=== PATIENT | female | born 1985 | race Caucasian/White ===

== ENCOUNTER → 2016-07-27 | Outpatient (REF) | payer BC ==
[~2016-07-27] MED LIST: FLOM5CAP PO; IBUP80TA PO; LEVO750T33; PERC5TAB6 PO; ZOFR4TAB3 PO
== END ==
LOC: M LAB REF 16:44
PROVIDERS: ATTEND Physician Assistant
DX: N39.0 Urinary tract infection, site not specified (principal)

== ENCOUNTER 2016-07-28 11:10 | Emergency (ER) | payer BC ==
[~2016-07-28] VITALS: Ht 157.5 cm; Wt 44.5 kg
[2016-07-28] MEDS ORDERED: LEVO750T33 (11:19)
[2016-07-28] MEDS ORDERED: ACETAMINOPHEN 325 MG TAB PO ONE (11:45)
[2016-07-28] MEDS ORDERED: NS 1,000 ML IV ONE (11:45)
[2016-07-28] MEDS ORDERED: cefTRIAXone SOD 1 GM in D5W MINI-BAG PLUS 50 ML IV ONE (11:45)
[2016-07-28] MEDS ORDERED: ONDANSETRON 4MG/2ML VIAL (J2405) IV ONE (11:45)
[2016-07-28] MEDS ORDERED: KETOROLAC 30 MG/ML VIAL (J1885) IV ONE (11:45)
[2016-07-28 12:15] LABS: MEAN CORPUSCULAR HEMOGLOBIN 31.1 pg (27.0-33.0); MEAN CORPUSCULAR HGB CONC 33.5 g/dl (32.0-36.5); RED CELL DISTRIBUTION WIDTH 13.7 % (11.5-14.5); WHITE BLOOD COUNT 16.4 K/mm3 (4.0-10.0)
[2016-07-28 13:06] LABS: ALBUMIN 3.3 GM/DL (3.2-5.2); ALBUMIN/GLOBULIN RATIO 0.75 (1.00-1.93); ALKALINE PHOSPHATASE 46 U/L (45-117); ALT/SGPT 12 U/L (12-78); ANION GAP 14 MEQ/L (8-16); AST/SGOT 14 U/L (15-37); BILIRUBIN,TOTAL 0.5 MG/DL (0.2-1.0); BLOOD UREA NITROGEN 13 MG/DL (7-18); CALCIUM LEVEL 8.5 MG/DL (8.5-10.1); CARBON DIOXIDE LEVEL 21 MEQ/L (21-32); CHLORIDE LEVEL 102 MEQ/L (98-107); GLOMERULAR FILTRATION RATE > 60.0 (>60); GLUCOSE, FASTING 82 MG/DL (70-105); POTASSIUM SERUM 3.6 MEQ/L (3.5-5.1); SODIUM LEVEL 137 MEQ/L (136-145); TOTAL PROTEIN 7.7 GM/DL (6.4-8.2)
--- NOTE | 2016-07-28 13:38 | REP ---
CT abdomen and pelvis without IV or oral contrast: Renal stone protocol. History: Right-sided abdomen and flank pain. Comparison CT study August 05, 2005. CT findings: Preliminary digital dirt bike racer radiograph shows tubal ligation clamps are noted bilaterally in the pelvis. Bowel gas pattern is unremarkable. The lung bases are clear on axial CT images. The liver and the spleen are normal in size, homogeneous in texture. No focal hepatic lesion is seen. The gallbladder and the pancreas are unremarkable. No adrenal lesion is seen. No intrarenal calculus is observed on either side. There is however perinephric stranding on the right most notable in the perinephric fat at the lower pole. No intrarenal calculus is observed. There are bilateral phleboliths in the pelvis in addition to the tubal ligation clamps. One of these may be in the distal ureter just above the ureterovesical junction but this is difficult to be confident of. There is no definite hydronephrosis on either side. There is an accessory splenule. Small and large intestinal bowel loops are unremarkable. The appendix is not definitely identified but there is no CT evidence to suggest appendicitis. The cecal tip is deep in the pelvis. Uterus is somewhat retroverted. Impression: Perinephric stranding at the lower pole of the right kidney. No definite hydronephrosis. Question 4 mm distal ureteral calculus on the right. Versus possible right-sided pyelonephritis. Otherwise negative CT study abdomen and pelvis without contrast. Signed by Moises Owen MD 07/28/2016 04:25 P
[2016-07-28 13:44] VITALS: BP 110/50
[2016-07-28] MEDS ORDERED: TAMSULOSIN 0.4 MG CAP PO ONE (14:00)
[2016-07-28] MEDS ORDERED: ZOFR4TAB3 PO (14:06)
[2016-07-28] MEDS ORDERED: PERC5TAB6 PO (14:06)
[2016-07-28] MEDS ORDERED: FLOM5CAP PO (14:06)
[2016-07-28] MEDS ORDERED: IBUP80TA PO (14:12)
== END 2016-07-28 14:27 | disposition home or self-care (01) ==
LOC: M ED 11:54
DX: N20.1 Calculus of ureter (principal); Z79.899 Other long term (current) drug therapy
CPT/HCPCS: 36415; 74176; 80053; 81001; 81025; 83605; 85027; 87086; 96365; 96375; 99284; J0696; J1885; J2405

== ENCOUNTER → 2017-06-22 | Outpatient (CLI) | payer BC | LOC: M WUC 09:52 | DX: R07.81 Pleurodynia (principal) | CPT/HCPCS: 71101 ==

== ENCOUNTER 2020-01-01 23:10 | Emergency (ER) | payer BC ==
[~2020-01-01 23:10] MED LIST changes: +FLOM0.4C39 PO; -FLOM5CAP PO; +LEVO750T13; -LEVO750T33; +PERC5TAB12 PO; -PERC5TAB6 PO; +ULTR50TA8 PO; +VITA50005 PO; +ZOFR4TAB14 PO; -ZOFR4TAB3 PO
[2020-01-02] MEDS ORDERED: LORazepam 1 MG TAB ONE (04:15)
--- NOTE | 2020-01-30 11:51 | ECGEPIP ---
[facility] - ED Test Date: 2020-01-02 Pat Name: JOYCE WALDRON Department: Room: - Gender: Female Production Internship: jarvis : 1985 Requested By: MARLO Celestin Order Number: [id number] Reading MD: Mer Jarquin Measurements Intervals [place] Rate: 94 P: 71 SC: 139 QRS: 101 QRSD: 84 T: 31 QT: 338 QTc: 423 Interpretive Statements SINUS RHYTHM MARKED RIGHT AXIS DEVIATION ABNORMAL ECG SEE SCANNED DOWNTIME REPORT
[2020-02-17 01:57] LABS: BASO # 0.1 10^3/uL (0.0-0.2); BASO % 0.7 % (0.0-1.0); EOS # 0.2 10^3/uL (0.0-0.5); EOS % 1.7 % (0.0-3.0); HEMATOCRIT 39.7 % (36.0-47.0); HEMOGLOBIN 13.1 g/dl (12.0-15.5); LYMPH # 3.2 10^3/uL (1.5-5.0); LYMPH % 24.2 % (24.0-44.0); MEAN CORPUSCULAR HEMOGLOBIN 31.3 pg (27.0-33.0); MONO # 0.9 10^3/uL (0.0-0.8); MONO % 6.5 % (0.0-5.0); NEUTROPHILS # 8.9 10^3/uL (1.5-8.5); NEUTROPHILS % 66.6 % (36.0-66.0); PLATELET COUNT, AUTOMATED 227 10^3/uL (150-450); RED BLOOD COUNT 4.18 10^6/uL (4.00-5.40); WHITE BLOOD COUNT 13.3 10^3/uL (4.0-10.0)
[2020-03-27 12:22] LABS: VENOUS BASE EXCESS -7.6 (-2.0-2.0); VENOUS HCO3 18.3 MEQ/L (23.0-27.0); VENOUS PARTIAL PRESSURE CO2 38.9 mmHg (38.0-50.0); VENOUS PARTIAL PRESSURE O2 43.3 mmHg (30.0-50.0); VENOUS PH 7.291 UNITS (7.330-7.430); VENOUS TOTAL CO2 19.5 MEQ/L (24.0-28.0)
[2020-03-27 12:23] LABS: VENOUS O2 SATURATION 73.9 % (60.0-80.0); VENOUS STANDARD HCO3 17.9 MEQ/L
[2020-03-27 12:31] LABS: ALBUMIN 3.9 GM/DL (3.2-5.2); ALT/SGPT 22 U/L (12-78); BILIRUBIN,DIRECT < 0.1 MG/DL (0.0-0.2); BILIRUBIN,TOTAL 0.2 MG/DL (0.2-1.0); BLOOD UREA NITROGEN 16 MG/DL (7-18); CALCIUM LEVEL 8.9 MG/DL (8.5-10.1); CARBON DIOXIDE LEVEL 24 MEQ/L (21-32); CHLORIDE LEVEL 112 MEQ/L (98-107); CK-MB VALUE MASS < 1.0 NG/ML (<3.6); CPK CREATINE PHOSPHOKINASE 182 U/L (26-192); CREATININE FOR GFR 0.85 MG/DL (0.55-1.30); ETHYL ALCOHOL (ETHANOL) 0.147 % (0.000-0.010); GLOMERULAR FILTRATION RATE > 60.0 (>60); GLUCOSE, FASTING 84 MG/DL (70-100); MB/CK RELATIVE INDEX 0.55 (< OR =4); NT-PRO BNP 24 PG/ML (<125); POTASSIUM SERUM 3.5 MEQ/L (3.5-5.1); SODIUM LEVEL 144 MEQ/L (136-145); TOTAL PROTEIN 7.8 GM/DL (6.4-8.2); TROPONIN I < 0.02 NG/ML (< 0.10)
== END 2020-01-02 04:30 | disposition home or self-care (01) ==
LOC: M ED 23:10
DX: R06.02 Shortness of breath (principal); R94.31 Abnormal electrocardiogram [ECG] [EKG]
CPT/HCPCS: 80048; 80076; 82550; 82553; 82803; 83880; 84484; 85025; 85379; 93005; 99285; G0480

== ENCOUNTER → 2021-01-18 | Outpatient (REF) | payer BC | LOC: M LAB REF 19:11 | PROVIDERS: ATTEND Physician Assistant | DX: R06.02 Shortness of breath (principal) ==

== ENCOUNTER 2021-03-31 01:46 | Emergency (ER) | payer BC ==
[~2021-03-31] VITALS: Ht 157.5 cm; Wt 47.8 kg
--- OUTSIDE RECORDS SUMMARY | 2021-03-31 01:55 | CCD ---
Continuity of Care Document (CCD) Created on: 01/19/2021 RickyArline External Reference #: [id number] : 1985 Sex: Female Author Author Arline HICKS Organization Unknown Address [address] [place] [address] [address] [place] [address] Phone [phone] Care Team Providers Care Sandwich Wrapper Name Role Phone Ita Ramírez D.O. AUTM Problems Active Problems Provider Date Mild recurrent major depression CAR Bryant Onset: 0 08/09/2018 Social History Type Date Description Comments Sex Unknown Tobacco Use Start: Unknown Light tobacco smoker (10 or fewe r cigarettes/day) Smoking Status Reviewed: 01/18/21 Light tobacco smoker (10 or fewer cigarettes/day) ETOH Use Occasionally consumes alcohol Tobacco Use Start: Unknown Light tobacco smoker (10 or fewe r cigarettes/day) smokes in a social setting only. Recreational Drug Use Denies Drug Use Exercise Type/Frequency Gym 2 times a week Sun Exposure Uses sunscreen Seat Belt/Car Seat Always uses seat belt Allergies, Adverse Reactions, Alerts Description No Known Drug Allergies Medications Active Medications SIG Qnty Indications Ordering Provide r Date Colace 100mg Capsules 1 by mouth every day 90caps K59.00 Ita Ramírez D.O. 08/10 Ambien 10mg Tablets take one tablet by mouth before bed 30tabs G47.8 Ita Ramírez D.O. 07/21 Knee Support/Neoprene/Open Patella/Small Misc one unit for stabilization of left patella 1units M76.5 2 Ita Baumann D.O. 07/27/2018 Flonase Sensimist 27 .5mcg/[place] Suspension two spray in each nostril every day 5.900ml H92.01 Ita Ramírez D.O. 07/27/2018 History Medications Linzess 145mcg Capsules 1 capsule by mouth daily on an empty stomach in the in the morning 90caps K59.00 Ita Baumann D.O. 08/10/2020 - 09/10/2020 Immunizations Description No Information Available Vital Signs Date Vital Result Comment 01/18/2021 4:01pm BP Systolic 120 mmHg BP Diastolic 66 mmHg Height 62.1 inches 5'2.10" Heart Rate 84 /min Respiratory Rate 14 /min Body Temperature 99.5 F O2 % BldC Oximetry 99 % [place] Body Weight 110 lb 09/10/2020 2:44pm BP Systolic 122 mmHg BP Diastolic 84 mmHg Height 62.1 inches 5'2.10" Weight 112.00 lb BMI (Body Mass Index) 20.4 kg/m2 Heart Rate 98 /min Body Temperature 99.7 F O2 % BldC Oximetry 99 % [place] Body Weight 110 lb Results Test Acquired Date Facility Test Result H/L Range Note Respiratory Panel 01/18/2021 [facility] Outpatient Testi (Registration) [address] [place] [address] [phone] Respiratory Panel This respiratory <SEE NOTE> 1 1 This respiratory PCR panel d etects Influenza A H1, H3 and 2009 H1 viruses, Influenza B virus, Resp iratory Syncytial Virus, Human metapneumovirus, Parainfluenza virus 1, 2, 3 and 4, Adenovirus, Rhinovirus/Enterovirus, Coronavirus HKU1, NL63, OC43, 229E and SARS-CoV-2 (COVID 19), Bordetella pertussis, Bordetella parapertussis, Mycoplasma pneumoniae and Chlamydia pneumoniae. NEGATIVE by MULTIPLEXED NUCLEIC ACID PCR SARS-CoV-2 (COVID 19) NEGATIVE - SARS-CoV-2 (COVID19) Procedures Date Code Description Status 01/18/2021 24807 Office/Outpatient Established Lo w MDM 20-29 Min Completed 09/10/2020 30496 Office/Outpatient Established Lo w MDM 20-29 Min Completed 08/10/2020 88975 Office/Outpatient Established Mo d MDM 30-39 Min Completed Medical Devices Description No Information Available Encounters Type Date Location Provider Dx Diagnosis Office Visit 01/18/2021 4:00p [facility] CAR Rondon R06.02 Shortness of breath Office Visit 09/10/2020 2:30p [facility] CAR Bryant K59.00 Constipation, unspecified G47.8 Other sleep disorders J30.9 Allergic rhinitis, unspecifi ed Office Visit 08/10/2020 4:10p [facility] CAR Bryant K59.00 Constipation, unspecified G47.8 Other sleep disorders Assessments Date Code Description Provider 01/18/2021 R06.02 Shortness of breath CAR Dunn 09/10/2020 K59.00 Constipation, unspecified CAR Coleman 09/10/2020 G47.8 Other sleep disorders CAR Noguera 09/10/2020 J30.9 Allergic rhinitis, unspecified M CAR Montaño 08/10/2020 K59.00 Constipation, unspecified CAR Coleman 08/10/2020 G47.8 Other sleep disorders CAR Noguera Plan of Treatment Future Appointment(s):* 09/13/2021 9:00 am - CAR Bryant at [facility] 01/18/2021 - CAR Rondon* R06.02 Shortness of breath* Comments:* Unsure of the cause currently. For the time being, we will test you for COVID. C onsider taking your loratadine twice daily, and using nasal saline as needed. Try a cooler environment. Call for any concerns. Functional Status Description No Information Available Mental Status Description No Information Available Referrals Description No Information Available
--- OUTSIDE RECORDS SUMMARY | 2021-03-31 01:55 | CCD | Continuity of Care Document ---
Author Author Arline HICKS Organization Unknown Address [address] [place] [address] [address] [place] [address] Phone [phone] Care Team Providers Care Vp Treasurer Name Role Phone Ita Ramírez D.O. AUTM [phone] Problems Active Problems Provider Date Mild recurrent [...] Ita Baumann D.O. 07/27/2018 Flonase Sensimist 27 .5mcg/[place] Suspension two spray in each nostril every [...] F O2 % BldC Oximetry 99 % [place] Body Weight 110 lb 09/10/2020 2:44pm BP Systolic 122 mmHg BP Diastolic 84 mmHg Height 62.1 inches 5'2.10" Weight 112.00 lb BMI (Body Mass Index) 20.4 kg/m2 Heart Rate 98 /min Body Temperature 99.7 F O2 % BldC Oximetry 99 % [place] Body Weight 110 lb Results Test Acquired Date Facility Test Result H/L Range Note Respiratory Panel 01/18/2021 [facility] Outpatient Testi (Registration) [address] [place] [address] [phone] Respiratory Panel This respiratory <SEE NOTE> 1 [...] (COVID19) Procedures Date Code Description Status 01/18/2021 86417 Office/Outpatient Established Lo w MDM 20-29 Min Completed 09/10/2020 62531 Office/Outpatient Established Lo w MDM 20-29 Min Completed 08/10/2020 35918 Office/Outpatient Established Mo d MDM 30-39 Min Completed Medical Devices Description No Information Available Encounters Type Date Location Provider Dx Diagnosis Office Visit 01/18/2021 4:00p [facility] CAR Rondon R06.02 Shortness of breath Office Visit 09/10/2020 2:30p [facility] CAR Bryant K59.00 Constipation, unspecified G47.8 Other sleep disorders J30.9 Allergic rhinitis, unspecifi ed Office Visit 08/10/2020 4:10p [facility] CAR Bryant K59.00 Constipation, unspecified G47.8 Other [...] 09/13/2021 9:00 am - CAR Bryant at [facility] 01/18/2021 - CAR Rondon* R06.02 Shortness of [...]
--- OUTSIDE RECORDS SUMMARY | 2021-03-31 01:56 | CCD ---
Author Author [facility] Organization [facility] Address Unknown Phone Unavailable Care Team Providers Care General Repair Mechanic Name Role Phone Nisreen, Rickey PA Unavailable Unavailable Nisreen, Rickey PA Unavailable Unavailable Nisreen, Rickey PA Unavailable Unavailable Nisreen, Rickey PA Unavailable Unavailable Nisreen, Rickey PA Unavailable Unavailable Nisreen, Rickey PA Unavailable Unavailable Nisreen, Rickey PA Unavailable Unavailable Nisreen, Rickey PA Unavailable Unavailable Nisreen, Rickey PA Unavailable Unavailable Nisreen, Rickey PA Unavailable Unavailable Nisreen, Rickey PA Unavailable Unavailable Nisreen, Rickey PA Unavailable Unavailable Nisreen, Rickey PA Unavailable Unavailable Nisreen, Rickey PA Unavailable Unavailable Nisreen, Rickey PA Unavailable Unavailable Nisrene, Rickey PA Unavailable Unavailable Nisreen, Rickey PA Unavailable Unavailable Nisreen, Rickey PA Unavailable Unavailable Nisreen, Rickey PA Unavailable Unavailable Nisreen, Rickey PA Unavailable Unavailable Nisreen, Rickey PA Unavailable Unavailable Nisreen, Rickey PA Unavailable Unavailable Nisreen, Rickey PA Unavailable Unavailable Nisreen, Rickey PA Unavailable Unavailable Nisreen, Rikcey PA Unavailable Unavailable Nisreen, Rickey PA Unavailable Unavailable Nisreen, Rickey PA Unavailable Unavailable Nisreen, Rickey PA Unavailable Unavailable Nirseen, Rickey PA Unavailable Unavailable Nisreen, Rickey PA Unavailable Unavailable Nisreen, Rickey PA Unavailable Unavailable Nisreen, Rickey PA Unavailable Unavailable Nisreen, Rickey PA Unavailable Unavailable Nisreen, Rickey PA Unavailable Unavailable Nisreen, Rickey PA Unavailable Unavailable Nisreen, Rickey PA Unavailable Unavailable Nisreen, Rickey PA Unavailable Unavailable Nisreen, Rickey PA Unavailable Unavailable Nisreen, Rickey PA Unavailable Unavailable Nisreen, Rickey PA Unavailable Unavailable Nisreen, Rickey PA Unavailable Unavailable Nisreen, Rickey PA Unavailable Unavailable Nisreen, Rickey PA Unavailable Unavailable Nisreen, Rickey PA Unavailable Unavailable Nisreen, Rickey PA Unavailable Unavailable Nisreen, Rickey PA Unavailable Unavailable Nisreen, Rickey PA Unavailable Unavailable Nisreen, Rickey PA Unavailable Unavailable Nisreen, Rickey PA Unavailable Unavailable Nisreen, Rickey PA Unavailable Unavailable Nisreen, Rickey PA Unavailable Unavailable Nisreen, Rickey PA Unavailable Unavailable Nisreen, Rickey PA Unavailable Unavailable Nisreen, Rickey PA Unavailable Unavailable O'milind, A Luis PA Unavailable Unavailable O'milind, A Luis PA Unavailable Unavailable O'milind, A Luis PA Unavailable Unavailable O'milind, A Luis PA Unavailable Unavailable O'milind, A Luis PA Unavailable Unavailable O'milind, A Luis PA Unavailable Unavailable O'milind, A Luis PA Unavailable Unavailable O'milind, A Luis PA Unavailable Unavailable O'milind, A Luis PA Unavailable Unavailable O'milind, A Luis PA Unavailable Unavailable O'milind, A Luis PA Unavailable Unavailable O'milind, A Luis PA Unavailable Unavailable O'milind, A Luis PA Unavailable Unavailable O'milind, A Luis PA Unavailable Unavailable O'milind, A Luis PA Unavailable Unavailable O'milind, A Luis PA Unavailable Unavailable O'milind, A Luis PA Unavailable Unavailable O'milind, A Luis PA Unavailable Unavailable O'milind, A Luis PA Unavailable Unavailable O'milind, A Luis PA Unavailable Unavailable O'milind, A Luis PA Unavailable Unavailable O'milind, A Luis PA Unavailable Unavailable O'milind, A Luis PA Unavailable Unavailable O'milind, A Luis PA Unavailable Unavailable O'milind, A Luis PA Unavailable Unavailable O'milind, A Luis PA Unavailable Unavailable O'milind, A Luis PA Unavailable Unavailable O'milind, A Lius PA Unavailable Unavailable O'milind, A Luis PA Unavailable Unavailable O'milind, A Luis PA Unavailable Unavailable O'milind, A Luis PA Unavailable Unavailable O'milind, A Luis PA Unavailable Unavailable O'milind, A Luis PA Unavailable Unavailable Re-disclosure Warning The records that you are about to access may contain information from federally-assisted alcohol or drug abuse programs. If such information is present, then the following federally mandated warning applies: This information has been disclosed to you from records protected by federal confidentiality rules (42 CFR part 2). The federal rules prohibit you from making any further disclosure of this information unless further disclosure is expressly permitted by the written consent of the person to whom it pertains or as otherwise permitted by 42 CFR part 2. A general authorization for the release of medical or other information is NOT sufficient for this purpose. The Federal rules restrict any use of the information to criminally investigate or prosecute any alcohol or drug abuse patient.The records that you are about to access may contain highly sensitive health information, the redisclosure of which is protected by Article 27-F of the [place] Public Health law. If you continue you may have access to information: Regarding HIV / AIDS; Provided by facilities licensed or operated by the [place] [employer] [place] Office of Mental Health; or Provided by the [facility] [place] Office for People With Developmental Disabilities. If such information is present, then the following [facility] [employer] mandated warning applies: This information has been disclosed to you from confidential records which are protected by state law. State law prohibits you from making any further disclosure of this information without the specific written consent of the person to whom it pertains, or as otherwise permitted by law. Any unauthorized further disclosure in violation of state law may result in a fine or penitentiary sentence or both. A general authorization for the release of medical or other information is NOT sufficient authorization for further disc losure. Family History Family Member Name Family Member Gender Family Member Status Date o f Status Description Data Source(s) Unknown Male Problem [facility] ([facility]) Unknown Male Problem [facility] ([facility] Unknown Unknown Problem [facility] ([facility]) mgm,pgm,maternal aunt,paternal uncle Unknown Unknown Problem [facility] ([facility] Unknown Unknown Problem [facility] ([facility]) son age 5 - Neel, Twins age 3 son - Cary cardona, girl - Violette. Unknown Unknown Problem [facility] ([facility] Encounters Encounter Providers Location Date Indications Data Source(s ) Outpatient Attender: Rickey YOON [facility] 01/18/2021 04:00:00 PM EDT [facility] ([facility]) Outpatient Attender: Luis YOON [facility] 09/10/2020 02:30:00 PM EDT [facility] ([facility]) Outpatient Attender: Luis YOON [facility] 08/10/2020 04:10:00 PM EDT [facility] ([facility]) Outpatient Attender: Rickey YOON [facility] 05/19/2020 03:10:00 PM EST [facility] ([facility]) Immunizations Vaccine Date Status Description Data Source(s) COVID-19 VACCINE Bessy 03/05/2021 12:00:00 AM EDT completed [facility] Vaccine Series Complete: YESThis Data wa s Submitted to [facility] Via [employer]. Medications Medication Brand Name Start Date Product Form Dose Route Admi nistrative Instructions Pharmacy Instructions Status Indications Reaction Description Data Source(s) Docusate Sodium 100 MG Oral Capsule [Colace] Colace 12:00:00 AM EDT ORAL active [facility] ( [facility]) linaclotide 0.145 MG Oral Capsule [Linzess] Linzess 07/21 12:00:00 AM EDT ORAL completed [facility] ([facility]) Zolpidem tartrate 10 MG Oral Tablet [Ambien] Ambien 12:00:00 AM EDT ORAL active [facility] ( [facility]) Insurance Providers Payer name Policy type / Coverage type Policy ID Covered republican ID Covered republican's relationship to nelson Policy Nelson Plan Information [place] [id number] [facility] [id number] [facility] [id number] [place] Trad/MX Commercial [id number] Family Dependent [id number] [place] Trad/MX Commercial [id number] Family Dependent [place] Trad/MX Commercial [id number] Self [id number] BS [place] Commercial [id number] Family Dependent G [id number] BCBS/Blue Card Commercial [id number] Self [id number] [place] 306/806 [id number] HU2 [id number] [place]BS [place] PPO 302/307 [id number] HU2 [id number] BCBS/Blue Card Commercial [id number] Self [id number] BCBS/Blue Card Commercial [id number] Family Dependent [id number] BCBS/Blue Card Commercial .[id number] Family Dependent BC/BS Of [place] Commercial [id number] Family Depende nt [employer] [id number] SP [id number] SELF PAY UNAVAILABLE SP UNAVAILA BLE BCBS/Blue Card Commercial [id number] Self [id number] [employer] BCBS B [id number] P [id number] [id number] [employer] U/W Commercial [id number] Family Dependent [place] [id number] BCBS OF [place] 306/806 [id number] HU2 [id number] [facility] U/W Commercial [id number] Family Dependent AN [id number] Problems, Conditions, and Diagnoses No Information Surgeries/Procedures Procedure Description Date Indications Data Source(s) OFFICE OUTPATIENT VISIT 15 MINUTES 01/18/2021 12:00:00 AM EDT [facility] ([facility]) OFFICE OUTPATIENT VISIT 15 MINUTES 09/10/2020 12:00:00 AM EDT [facility] ([facility]) OFFICE OUTPATIENT VISIT 25 MINUTES 08/10/2020 12:00:00 AM EDT [facility] ([facility]) Results ID Date Data Source [id number] 01/18/2021 04:16:00 PM EDT [facility] Name Value Range Interpretation Code Description Data Kae rce(s) Supporting Document(s) SARS-CoV-2 (COVID 19) NEGATIVE - SARS-CoV-2 (COVID19) [facility] This lab was ordered by [facility] a nd reported by [facility]. ID Date Data Source [id number] 01/18/2021 04:16:00 PM EDT [facility] ([facility]) Name Value Range Interpretation Code Description Data Kae rce(s) Supporting Document(s) Respiratory Panel Laboratory test result [facility] ([facility]) This respiratory PCR panel detects Influ [place] A H1, H3 and 2009 H1 viruses, Influenza B virus, Resp iratory Syncytial Virus, Human metapneumovirus, Parainfluenza virus 1, 2, 3 and 4, Adenovirus, Rhinovirus/Enterovirus, Coronavirus HKU1, NL63, OC43, 229E and SARS-CoV-2 (COVID 19), Bordetella pertussis, Bordetella parapertussis, Mycoplasma pneumoniae and Chlamydia pneumoniae. NEGATIVE by MULTIPLEXED NUCLEIC ACID PCR SARS-CoV-2 (COVID 19) NEGATIVE - SARS-CoV-2 (COVID19) Procedure Social History No Information Vital Signs ID Date Data Source UNK Name Value Range Interpretation Code Description Data Source(s) Body temperature 99.5 [degF] 99.5 [degF] [facility] ([facility]) Systolic blood pressure 120 mm[Hg] 120 mm[Hg] [facility] ([facility]) Oxygen saturation in Arterial blood by Pulse oximetry 99 % 99 % [facility] ([facility]) Diastolic blood pressure 66 mm[Hg] 66 mm[Hg] [facility] ([facility]) Body height 62.1 [in_i] 62.1 [in_i] [facility] ([facility]) 5'2.10" Heart rate 84 /min 84 /min [facility] ([facility]) [place] body weight 110 [lb_av] 110 [lb_av] [facility] ([facility]) Respiratory rate 14 /min 14 /min [facility] ( [facility]) [place] body weight 110 [lb_av] 110 [lb_av] [facility] ([facility]) Body weight 112.00 [lb_av] 112.00 [lb_av] [facility] ([facility]) Oxygen saturation in Arterial blood by Pulse oximetry 99 % 99 % [facility] ([facility]) Body temperature 99.7 [degF] 99.7 [degF] [facility] ([facility]) Body mass index (BMI) [Ratio] 20.4 kg/m2 20.4 k g/m2 [facility] ([facility]) Heart rate 98 /min 98 /min [facility] ([facility]) Systolic blood pressure 122 mm[Hg] 122 mm[Hg] [facility] ([facility]) Diastolic blood pressure 84 mm[Hg] 84 mm[Hg] [facility] ([facility]) Body height 62.1 [in_i] 62.1 [in_i] [facility] ([facility]) 5'2.10" Systolic blood pressure 122 mm[Hg] 122 mm[Hg] [facility] ([facility]) Diastolic blood pressure 74 mm[Hg] 74 mm[Hg] [facility] ([facility]) Body height 62.1 [in_i] 62.1 [in_i] [facility] ([facility]) 5'2.10" Body temperature 99.5 [degF] 99.5 [degF] [facility] ([facility]) Heart rate 96 /min 96 /min [facility] ([facility]) Respiratory rate 18 /min 18 /min [facility] ( [facility]) Oxygen saturation in Arterial blood by Pulse oximetry 97 % 97 % [facility] ([facility]) [place] body weight 110 [lb_av] 110 [lb_av] [facility] ([facility]) Systolic blood pressure 114 mm[Hg] 114 mm[Hg] [facility] ([facility]) Diastolic blood pressure 72 mm[Hg] 72 mm[Hg] [facility] ([facility]) Body height 62.1 [in_i] 62.1 [in_i] [facility] ([facility] 5'2.10" Body weight 110.00 [lb_av] 110.00 [lb_av] [facility] ([facility]) Body mass index (BMI) [Ratio] 20.1 kg/m2 20.1 k g/m2 [facility] ([facility]) Heart rate 100 /min 100 /min [facility] ([facility]) Body temperature 99.8 [degF] 99.8 [degF] [facility] ([facility]) Oxygen saturation in Arterial blood by Pulse oximetry 93 % 93 % [facility] ([facility]) [place] body weight 110 [lb_av] 110 [lb_av] [facility] ([facility]) Respiratory rate 18 /min 18 /min [facility] ( [facility])
--- OUTSIDE RECORDS SUMMARY | 2021-03-31 01:56 | CCD | Continuity of Care Document ---
Author Author Arline HICKS Organization Unknown Address [address] [place] [address] 6 [address] [place] [address] Phone [phone] Care Team Providers Care Baggage Handler Name Role Phone Ita Ramírez D.O. AUTM [...] Ita Baumann D.O. 07/27/2018 Flonase Sensimist 27 .5mcg/[place] Suspension two spray in each nostril every [...] F O2 % BldC Oximetry 99 % [place] Body Weight 110 lb 09/10/2020 2:44pm BP Systolic 122 mmHg BP Diastolic 84 mmHg Height 62.1 inches 5'2.10" Weight 112.00 lb BMI (Body Mass Index) 20.4 kg/m2 Heart Rate 98 /min Body Temperature 99.7 F O2 % BldC Oximetry 99 % [place] Body Weight 110 lb Results Description No Information Available Procedures Date Code Description Status 09/10/2020 11606 Office/Outpatient Established Lo w MDM 20-29 Min Completed 08/10/2020 47674 Office/Outpatient Established Mo d MDM 30-39 Min Completed Medical Devices Description No Information Available Encounters Type Date Location Provider Dx Diagnosis Office Visit 09/10/2020 2:30p Family Medicine [facility][1] CAR Bryant K59.00 Constipation, unspecified G47.8 Other sleep disorders J30.9 Allergic rhinitis, unspecifi ed Office Visit 08/10/2020 4:10p Family [facility] CAR Bryant K59.00 Constipation, unspecified G47.8 Other sleep disorders Assessments Date Code Description Provider 01/18/2021 R06.02 Shortness of breath CAR Dunn 09/10/2020 K59.00 Constipation, unspecified CAR Coleman 09/10/2020 G47.8 Other sleep disorders CAR Noguera 09/10/2020 J30.9 Allergic rhinitis, unspecified CAR Martinez 08/10/2020 K59.00 Constipation, unspecified CAR Coleman 08/10/2020 G47.8 Other sleep disorders CAR Noguera Plan of Treatment Future Appointment(s):* 09/13/2021 9:00 am - CAR Bryant at [facility] 01/18/2021 - CAR Rondon* R06.02 Shortness of breath* New Labs:* Respiratory Panel, Ordered: 01/18/21 * Comments:* Unsure of the cause currently. For the time being, we will test you for COVID. Consider taking your loratadine twice daily, and using nasal saline as needed. Try a cooler environment. Call for any concerns. Functional Status Description No Information Available Mental Status Description No Information Available Referrals Description No Information Available
--- OUTSIDE RECORDS SUMMARY | 2021-03-31 01:56 | CCD | Continuity of Care Document ---
Author Author Arline HICKS Organization Unknown Address [address] [place] [address] 6 [address] [place] [address] Phone [phone] Care Team Providers Care Athletic Monitor Name Role Phone Ita Ramírez D.O. AUTM [...] Ita Baumann D.O. 07/27/2018 Flonase Sensimist 27 .5mcg/[place] Suspension two spray in each nostril every [...] F O2 % BldC Oximetry 99 % [place] Body Weight 110 lb 09/10/2020 2:44pm BP Systolic 122 mmHg BP Diastolic 84 mmHg Height 62.1 inches 5'2.10" Weight 112.00 lb BMI (Body Mass Index) 20.4 kg/m2 Heart Rate 98 /min Body Temperature 99.7 F O2 % BldC Oximetry 99 % [place] Body Weight 110 lb Results Description No Information Available Procedures Date Code Description Status 09/10/2020 17029 Office/Outpatient Established Lo w MDM 20-29 Min Completed 08/10/2020 21599 Office/Outpatient Established Mo d MDM 30-39 Min Completed Medical Devices Description No Information Available Encounters Type Date Location Provider Dx Diagnosis Office Visit 09/10/2020 2:30p Family Medicine [facility] CAR Bryant K59.00 Constipation, unspecified G47.8 Other sleep disorders J30.9 Allergic rhinitis, unspecifi ed Office Visit 08/10/2020 4:10p Family [facility] CAR Bryant K59.00 Constipation, unspecified G47.8 Other [...] 09/13/2021 9:00 am - CAR Bryant at [facility] 01/18/2021 - CAR Rondon* R06.02 Shortness [...]
[2021-03-31 04:58] LABS: BASO # 0.1 10^3/uL (0.0-0.2); BASO % 0.8 % (0.0-1.0); EOS # 0.2 10^3/uL (0.0-0.5); EOS % 1.1 % (0.0-3.0); HEMATOCRIT 38.9 % (36.0-47.0); HEMOGLOBIN 12.7 g/dl (12.0-15.5); LYMPH # 2.3 10^3/uL (1.5-5.0); MEAN CORPUSCULAR HEMOGLOBIN 30.8 pg (27.0-33.0); MEAN CORPUSCULAR HGB CONC 32.6 g/dl (32.0-36.5); MEAN CORPUSCULAR VOLUME 94.4 fl (80.0-96.0); MONO # 1.2 10^3/uL (0.0-0.8); MONO % 8.9 % (2.0-8.0); NEUTROPHILS # 9.7 10^3/uL (1.5-8.5); NEUTROPHILS % 71.9 % (36.0-66.0); PLATELET COUNT, AUTOMATED 236 10^3/uL (150-450); RED BLOOD COUNT 4.12 10^6/uL (4.00-5.40); WHITE BLOOD COUNT 13.6 10^3/uL (4.0-10.0)
[2021-03-31 05:32] LABS: BLOOD UREA NITROGEN 12 MG/DL (7-18); CALCIUM LEVEL 8.9 MG/DL (8.5-10.1); CARBON DIOXIDE LEVEL 25 MEQ/L (21-32); CHLORIDE LEVEL 106 MEQ/L (98-107); GLOMERULAR FILTRATION RATE > 60.0 (>60); GLUCOSE, FASTING 90 MG/DL (70-100); HCG, SERUM QUALITATIVE NEGATIVE (NEGATIVE); POTASSIUM SERUM 4.1 MEQ/L (3.5-5.1); SODIUM LEVEL 138 MEQ/L (136-145)
--- NOTE | 2021-03-31 06:49 | REPVR ---
PROCEDURE INFORMATION: Exam: CT Abdomen And Pelvis Without Contrast Exam date and time: 03/31/2021 4:26 AM Age: 36 years old Clinical indication: Abdominal pain; Flank; Right; Additional info: Right renal colic TECHNIQUE: Imaging protocol: Computed tomography of the abdomen and pelvis without contrast. Radiation optimization: All CT scans at this facility use at least one of these dose optimization techniques: automated exposure control; mA and/or kV adjustment per patient size (includes targeted exams where dose is matched to clinical indication); or iterative reconstruction. COMPARISON: CT ABD PELVIS W/O CONTRAST 07/28/2016 12:37 PM FINDINGS: Liver: Mild hepatomegaly. Gallbladder and bile ducts: Normal. No calcified stones. No ductal dilation. Pancreas: Normal. No ductal dilation. Spleen: Normal. No splenomegaly. Adrenal glands: Normal. No mass. Kidneys and ureters: [id number] right hydroureteronephrosis to the level of a 4-5 mm calculus in distal right ureter. Stomach and bowel: Unremarkable. No obstruction. No mucosal thickening. Appendix: No evidence of appendicitis. Intraperitoneal space: Unremarkable. No free air. No significant fluid collection. Vasculature: Unremarkable. No abdominal aortic aneurysm. Lymph nodes: Unremarkable. No enlarged lymph nodes. Urinary bladder: Unremarkable as visualized. Reproductive: Status post fallopian tube ligation. Bones/joints: Unremarkable. No acute fracture. Soft tissues: Unremarkable. IMPRESSION: [id number] right hydroureteronephrosis to the level of a 4-5 mm calculus in distal right ureter. Electronically signed by: Greg Rios On 03/31/2021 06:49:26 AM
[2021-03-31] MEDS ORDERED: TAMSULOSIN 0.4 MG CAP PO ONE (07:05)
[2021-03-31] MEDS ORDERED: CIPROFLOXACIN 400 MG in IV 1 EA IV ONE (07:05)
[2021-03-31] MEDS ORDERED: KETOROLAC 30 MG/ML 1ML VIAL IV ONE (07:05)
[2021-03-31] MEDS ORDERED: ONDA4TAB6 PO (07:10)
[2021-03-31] MEDS ORDERED: FLOM0.4C39 PO (07:10)
[2021-03-31] MEDS ORDERED: CIPR-249 PO (07:10)
[2021-03-31] MEDS ORDERED: HYDR-3713 PO (07:10)
[2021-03-31 08:44] VITALS: BP 105/53
== END 2021-03-31 08:48 | disposition home or self-care (01) ==
LOC: M ED 01:46
DX: N20.1 Calculus of ureter (principal); N11.1 Chronic obstructive pyelonephritis
CPT/HCPCS: 74176; 80048; 81001; 84703; 85025; 87088; 87186; 96365; 96375; 99284; J0744; J1885

== ENCOUNTER 2023-06-05 16:02 | Emergency (ER) | payer BC ==
[~2023-06-05] VITALS: Ht 157.5 cm; Wt 49.0 kg
[~2023-06-05 16:02] MED LIST changes: +CIPR-249 PO; +HYDR-3713 PO; +LEVO1TAB40; -LEVO750T13; +ONDA4TAB6 PO
[2023-06-05 16:04] VITALS: BP 107/61; TEMP 99.8; O2SAT 99
== END 2023-06-05 18:04 | disposition left against medical advice (07) ==
LOC: M ED 16:02
DX: Z53.21 Procedure and treatment not carried out due to patient leaving prior to being seen by health care provider (principal)